=== PATIENT | female | born 1995 | race Two or more races ===

== ENCOUNTER 2020-07-23 01:11 | Emergency (ER) | payer BC, OTHER ==
[~2020-07-23] VITALS: Ht 152.4 cm; Wt 45.4 kg
[2020-07-23 03:10] LABS: Basophils # (auto) 0 10 ^3/uL (0-0.2); Basophils % (auto) 0.8 % (0.0-2.0); Eosinophils # (auto) 0.1 10 ^3/uL (0-0.8); Eosinophils % (auto) 2.2 % (0.0-7.0); Hematocrit 47.5 % (36.0-46.0); Lymphocytes # (auto) 1.3 10 ^3/uL (0.4-5.4); Lymphocytes % (auto) 24.7 % (10.0-50.0); Mean Corpuscular Hemoglobin 30.4 pg (28.0-32.0); Mean Corpuscular Hgb Conc. 33.7 g/dL (32.0-36.0); Mean Corpuscular Volume 90.3 fL (80.0-100.0); Monocytes # (auto) 0.4 10 ^3/uL (0-1.3); Monocytes % (auto) 8.2 % (0.0-12.0); Neutrophils # (auto) 3.3 10 ^3/uL (1.6-8.6); Neutrophils % (auto) 64.1 % (37.0-80.0); Nucleated Red Blood Cells % 0.1 %; Platelet Count (auto) 136 10^3/uL (140-450); Red Blood Cells 5.26 10^6/uL (4.0-5.20); Red Cell Distribution Width 13.2 % (11.8-14.3); White Blood Cell 5.2 10^3/uL (4.4-10.8)
[2020-07-23 03:12] LABS: Albumin 4.3 g/dL (3.4-5.0); Anion Gap 8 (5-15); Blood Urea Nitrogen 14 mg/dL (7-18); Calcium 8.4 mg/dL (8.5-10.1); Carbon Dioxide 20 mmol/L (21-32); Chloride 110 mmol/L (98-107); GFR African American 158 mL/min; GFR Non-African American 130 mL/min; Glucose 82 mg/dL (74-106); Magnesium 2.1 mg/dL (1.6-2.6); Potassium 3.8 mmol/L (3.5-5.1); Sodium 138 mmol/L (136-145)
[2020-07-23 03:17] LABS: Alanine Aminotransferase 32 U/L (13-56); Alkaline Phosphatase 118 U/L (45-117); Aspartate Aminotransferase 19 U/L (15-37); Total Protein 8.5 g/dL (6.4-8.2)
[2020-07-23 03:21] LABS: INR 1.22 (0.9-1.15); Partial Thromboplastin Time 32.5 sec (23.0-31.2)
[2020-07-23] MEDS ORDERED: IPRATROPIUM BROM 0.5 MG/2.5ML INH SOL NEB ONE (03:45)
[2020-07-23] MEDS ORDERED: ALBUTEROL SULF 2.5 MG/0.5ML(0.5%) NEB SOLN NEB ONE (03:45)
[2020-07-23 04:30] VITALS: BP 119/73
== END 2020-07-23 04:52 | disposition home or self-care (01) ==
LOC: ER 01:11
DX: U07.1 COVID-19 (principal); F41.9 Anxiety disorder, unspecified; R94.6 Abnormal results of thyroid function studies; R79.1 Abnormal coagulation profile
CPT/HCPCS: 36415; 71045; 80053; 83735; 83880; 84443; 84484; 85025; 85379; 85610; 85730; 93005

== ENCOUNTER 2020-09-22 01:29 | Inpatient (IN) | payer BC ==
[~2020-09-22] VITALS: Ht 152.4 cm; Wt 47.3 kg
[2020-09-22 03:09] LABS: Basophils # (auto) 0 10 ^3/uL (0-0.2); Eosinophils # (auto) 0 10 ^3/uL (0-0.8)
[2020-09-22 03:12] LABS: Basophils % (auto) 0.3 % (0.0-2.0); Eosinophils % (auto) 0.2 % (0.0-7.0); Hematocrit 41.8 % (36.0-46.0); Hemoglobin 14.6 g/dL (12.2-16.2); Lymphocytes # (auto) 0.8 10 ^3/uL (0.4-5.4); Lymphocytes % (auto) 5.2 % (10.0-50.0); Mean Corpuscular Hemoglobin 31.5 pg (28.0-32.0); Mean Corpuscular Volume 90.1 fL (80.0-100.0); Monocytes # (auto) 0.9 10 ^3/uL (0-1.3); Monocytes % (auto) 5.8 % (0.0-12.0); Neutrophils # (auto) 13.2 10 ^3/uL (1.6-8.6); Neutrophils % (auto) 88.5 % (37.0-80.0); Nucleated Red Blood Cells % 0.4 %; Platelet Count (auto) 188 10^3/uL (140-450); Red Blood Cells 4.64 10^6/uL (4.0-5.20); Red Cell Distribution Width 13.2 % (11.8-14.3); White Blood Cell 14.9 10^3/uL (4.4-10.8)
[2020-09-22 03:28] LABS: Albumin 4.1 g/dL (3.4-5.0); Calcium 8.5 mg/dL (8.5-10.1); Potassium 4.4 mmol/L (3.5-5.1)
[2020-09-22] MEDS ORDERED: ONDANSETRON HCL 4 MG/2 ML VIAL IV ONE ×2 (03:30)
[2020-09-22] MEDS ORDERED: SODIUM CHLORIDE 0.9% 1,000 ML IV ONE ×2 (03:30)
[2020-09-22 03:33] LABS: BUN/Creatinine Ratio 17.1; Bilirubin, Total 4.4 mg/dL (0.2-1.0); Total Protein 8.4 g/dL (6.4-8.2)
[2020-09-22 03:41] LABS: Urine Bacteria FEW /hpf (None Seen); Urine Blood Negative /uL (Negative); Urine Mucus FEW (None Seen); Urine Specific Gravity 1.027 (1.001-1.035); Urine WBC 23 /hpf (0 - 5)
[2020-09-22] MEDS ORDERED: cefTRIAXone 1GM/50ML D5W 50 ML IV ONE (04:00)
[2020-09-22] MEDS ORDERED: KETOROLAC TROMETH 30 MG/ML 1ML VIAL IV ONE ×2 (05:30)
[2020-09-22] MEDS ORDERED: ONDANSETRON HCL 4 MG/2 ML VIAL IV PRN ×2 (06:30→07:30)
[2020-09-22] MEDS ORDERED: HYDROcodone-ACET 5/325MG TAB PO PRN (07:30)
[2020-09-22] MEDS ORDERED: ACETAMINOPHEN 325 MG TAB PO PRN (07:30)
[2020-09-22] MEDS ORDERED: MORPHINE SULFATE 4 MG/ML SYR/VIAL IV PRN (07:30)
[2020-09-22] MEDS ORDERED: MORPHINE SULF INJ 2 MG/ML SYRINGE 1ML IV PRN (07:30)
[2020-09-22] MEDS ORDERED: DOCUSATE SOD 100 MG CAP PO PRN (07:30)
[2020-09-22] MEDS ORDERED: NITROGLYCERIN 0.4 MG SL TAB SL PRN (07:30)
[2020-09-22 07:59] LABS: Basophils # (auto) 0 10 ^3/uL (0-0.2); Basophils % (auto) 0.2 % (0.0-2.0); Eosinophils # (auto) 0 10 ^3/uL (0-0.8); Eosinophils % (auto) 0.1 % (0.0-7.0); Hematocrit 37.4 % (36.0-46.0); Hemoglobin 13.2 g/dL (12.2-16.2); Lymphocytes # (auto) 0.8 10 ^3/uL (0.4-5.4); Lymphocytes % (auto) 6.6 % (10.0-50.0); Mean Corpuscular Hgb Conc. 35.4 g/dL (32.0-36.0); Mean Corpuscular Volume 90.5 fL (80.0-100.0); Monocytes # (auto) 0.8 10 ^3/uL (0-1.3); Monocytes % (auto) 6.1 % (0.0-12.0); Platelet Count (auto) 155 10^3/uL (140-450); Red Blood Cells 4.14 10^6/uL (4.0-5.20); Red Cell Distribution Width 12.8 % (11.8-14.3); White Blood Cell 12.7 10^3/uL (4.4-10.8)
[2020-09-22 08:14] LABS: Albumin 3.4 g/dL (3.4-5.0); Potassium 3.9 mmol/L (3.5-5.1)
[2020-09-22 08:18] LABS: BUN/Creatinine Ratio 21.9; Bilirubin, Total 3.7 mg/dL (0.2-1.0)
[2020-09-22] MEDS: D5W/SOD CHLO 0.9% 1,000 ML IV SCH ×3 (08:39→21:57)
[2020-09-22] MEDS: cefTRIAXone 1GM/50ML D5W 50 ML IV SCH (08:39)
[2020-09-22] MEDS: FAMOTIDINE (10MG/ML) 2ML VL IV SCH (08:43)
[2020-09-22] MEDS: MULTIPLE VITAMIN TAB PO SCH (08:43)
[2020-09-22] MEDS: ZINC SULFATE 220mg CAP or TAB PO SCH (08:43)
[2020-09-22] MEDS: ASCORBIC ACID 500 MG TAB PO SCH ×2 (08:43→21:23)
[2020-09-22] MEDS: ENOXAPARIN SOD 40 MG/0.4 ML SYRINGE SC SCH (10:00)
[2020-09-22] MEDS ORDERED: ASPI-498 PO (10:05)
[2020-09-22] MEDS ORDERED: ENAL2.5T7 PO ×2 (10:05→22:03)
[2020-09-22] MEDS ORDERED: PROCHLORPERAZINE EDISYLATE 5 MG/ML 2ML VIAL IV ONE (12:45)
[2020-09-22] MEDS ORDERED: LOPERAMIDE HCL 2 MG CAP PO PRN (12:45)
[2020-09-22 21:00] VITALS: BP 103/50
[2020-09-22 22:03] VITALS: BP 103/50
[2020-09-22] MEDS ORDERED: ASPI-543 PO (22:03)
[2020-09-23 05:55] VITALS: BP 88/48
[2020-09-23 05:59] VITALS: BP 96/55
[2020-09-23 07:30] LABS: Basophils # (auto) 0 10 ^3/uL (0-0.2); Basophils % (auto) 0.3 % (0.0-2.0); Eosinophils # (auto) 0.1 10 ^3/uL (0-0.8); Eosinophils % (auto) 1.2 % (0.0-7.0); Hematocrit 36.4 % (36.0-46.0); Hemoglobin 12.7 g/dL (12.2-16.2); Lymphocytes % (auto) 11.3 % (10.0-50.0); Mean Corpuscular Hemoglobin 31.8 pg (28.0-32.0); Mean Corpuscular Hgb Conc. 34.8 g/dL (32.0-36.0); Mean Corpuscular Volume 91.4 fL (80.0-100.0); Monocytes # (auto) 1.1 10 ^3/uL (0-1.3); Monocytes % (auto) 13.2 % (0.0-12.0); Neutrophils # (auto) 6.3 10 ^3/uL (1.6-8.6); Nucleated Red Blood Cells % 0.1 %; Platelet Count (auto) 129 10^3/uL (140-450); Red Blood Cells 3.99 10^6/uL (4.0-5.20); Red Cell Distribution Width 12.9 % (11.8-14.3); White Blood Cell 8.5 10^3/uL (4.4-10.8)
[2020-09-23 07:42] LABS: Albumin 3.3 g/dL (3.4-5.0); BUN/Creatinine Ratio 11.1; Calcium 8.3 mg/dL (8.5-10.1); Potassium 3.4 mmol/L (3.5-5.1)
[2020-09-23 07:51] LABS: Bilirubin, Total 4.2 mg/dL (0.2-1.0); Total Protein 6.5 g/dL (6.4-8.2)
[2020-09-23 09:00] VITALS: BP 101/48
[2020-09-23] MEDS: cefTRIAXone 1GM/50ML D5W 50 ML IV SCH (09:14)
[2020-09-23] MEDS: FAMOTIDINE (10MG/ML) 2ML VL IV SCH (09:15)
[2020-09-23] MEDS: ENOXAPARIN SOD 40 MG/0.4 ML SYRINGE SC SCH ×2 (09:16→09:33)
[2020-09-23] MEDS: ASCORBIC ACID 500 MG TAB PO SCH (09:16)
[2020-09-23] MEDS: MULTIPLE VITAMIN TAB PO SCH (09:17)
[2020-09-23] MEDS: ZINC SULFATE 220mg CAP or TAB PO SCH (09:17)
[2020-09-23] MEDS ORDERED: POTASSIUM CHL 10 Meq TABLET PO ONE (14:15)
== END 2020-09-23 16:30 | disposition home or self-care (01) | DRG 690 ==
LOC: ER 01:35 → TELE 01:36 → TELE-EAST 20:45
PROVIDERS: ADMIT Nurse Practitioner Family; ATTEND Internal Medicine
DX: N10 Acute pyelonephritis (principal); E87.1 Hypo-osmolality and hyponatremia; N15.1 Renal and perinephric abscess; F41.9 Anxiety disorder, unspecified; Z20.822 Contact with and (suspected) exposure to COVID-19; E87.6 Hypokalemia; Z88.8 Allergy status to other drugs, medicaments and biological substances; E80.6 Other disorders of bilirubin metabolism
CPT/HCPCS: 36415; 74176; 80053; 81001; 81025; 83605; 83735; 84443; 85025; 87040; 87086; 87426; 96365; 96366; 96372; 96375; G0378; J0696; J1885; J2405; J3490